=== PATIENT | female | born 1940 | race Caucasian/White ===

== ENCOUNTER 2017-07-16 04:46 | Emergency (ER) | payer OTHER, BC ==
[~2017-07-16] VITALS: Ht 157.5 cm; Wt 59.3 kg
[2017-07-16] MEDS ORDERED: ZOFRAN ODT4 MG PO (08:05)
[2017-07-16] MEDS ORDERED: NAPROXEN500 MG PO (08:05)
[2017-07-16] MEDS ORDERED: FLEXERIL10 MG PO (08:05)
[2017-07-16] MEDS ORDERED: LIDODERM 5% P1 PATCH TD ×3 (08:05→08:12)
[2017-07-16 08:52] VITALS: BP 187/95
== END 2017-07-16 08:54 | disposition home or self-care (01) ==
LOC: EME 04:46
DX: M48.56XA Collapsed vertebra, not elsewhere classified, lumbar region, initial encounter for fracture (principal); Z85.118 Personal history of other malignant neoplasm of bronchus and lung; Z88.0 Allergy status to penicillin
CPT/HCPCS: 72100; 99281; 99284; J1885

== ENCOUNTER 2017-09-02 10:00 | Inpatient (IN) | payer OTHER, BC ==
[~2017-09-02] VITALS: Ht 157.5 cm; Wt 58.5 kg
[2017-09-02] VITALS (10 sets, daily range): BP systolic 92–191; BP diastolic 57–82
[~2017-09-02 10:00] MED LIST: FLEXERIL10 MG PO; LIDODERM 5% P1 PATCH TD; NAPROXEN500 MG PO; ZOFRAN ODT4 MG PO
[2017-09-02 11:13] LABS: HEMATOCRIT 21.1 % (36.0-46.0); MCH 25.1 PG (29.0-34.0); MCHC 30.8 G/DL (30.0-36.0); MCV 81.5 FL (83-99); MEAN PLAT.VOLUME 9.5 uM^3 (9.5-12.4); PLATELET COUNT 541 K/uL (156-360); RBC DIS.WIDTH-CV 16.9 % (11.8-14.6); RBC DIS.WIDTH-SD 49.8 % (39-53); RED BLOOD COUNT 2.59 M/uL (3.80-5.20); WHITE BLOOD COUNT 10.6 K/uL (4.1-10.2)
[2017-09-02 11:19] LABS: CHLORIDE 97 mEq/L (99-109); INTER. NORMALIZED RATIO 1.1; POTASSIUM 4.6 mEq/L (3.7-5.4); PROTHROMBIN TIME 12.4 SEC (10.2-12.9); SODIUM 133 mEq/L (136-147)
[2017-09-02 11:20] LABS: GLUCOSE 254 mg/dL (70-99)
[2017-09-02 11:21] LABS: PTT 28.9 SEC (25-37)
[2017-09-02 11:22] LABS: ANION GAP 7 MEQ/L (2-14)
[2017-09-02 11:24] LABS: GFR ESTIMATE (CALCULATED) > 59 mL/min/
[2017-09-02 11:25] LABS: UREA NITROGEN (BUN) 22 mg/dL (9-23)
[2017-09-02 11:32] LABS: TROP-I INTERPRETATION NEGATIVE; TROPONIN-I 0.01 ng/mL (0.0-0.30)
[2017-09-02 12:32] LABS: ABSOLUTE RETICULOCYTE CT. 0.1 M/uL (0.02-0.08); IMM.RETIC FRACTION 39.2 % (3-19); RETIC HGB EQUIVALENT 25.4 (28-36); RETICULOCYTE COUNT 2.6 % (0.5-1.8)
[2017-09-02] MEDS ORDERED: DUONEB 2.5-0.5 M3 ML AEROSOL (15:39)
[2017-09-02] MEDS ORDERED: METFORMIN HCL500 MG PO (15:39)
[2017-09-02] MEDS ORDERED: LISINOPRIL5 MG PO (15:39)
[2017-09-02] MEDS ORDERED: PANTOPRAZOLE SO40 MG PO (15:39)
[2017-09-02 19:24] LABS: TROP-I INTERPRETATION NEGATIVE; TROPONIN-I 0.01 ng/mL (0.0-0.30)
[2017-09-03 00:46] VITALS: BP 162/80
[2017-09-03 02:59] VITALS: BP 154/74
[2017-09-03 03:01] LABS: EOSINOPHIL (%) 0.1 % (0-5); HEMATOCRIT 26.5 % (36.0-46.0); IMMATURE GRANULOCYTE (%) 0.9 % (0.0-0.7); IMMATURE GRANULOCYTE COUNT 0.1 K/uL; INSTRUMENT ABS NEUTROPHIL CT 7.7 K/uL; LYMPHOCYTE COUNT 2.2 K/uL (1.0-2.8); MCH 26.4 PG (29.0-34.0); MCHC 32.5 G/DL (30.0-36.0); MCV 81.3 FL (83-99); MEAN PLAT.VOLUME 9.4 uM^3 (9.5-12.4); MONOCYTE (%) 10.8 % (3-12); MONOCYTE COUNT 1.2 K/uL (0-0.8); NEUTROPHIL (%) 68.5 % (45-76); NEUTROPHIL COUNT 7.7 K/uL (1.8-6.4); PLATELET COUNT 492 K/uL (156-360); RBC DIS.WIDTH-CV 16.1 % (11.8-14.6); RBC DIS.WIDTH-SD 47.9 % (39-53); WHITE BLOOD COUNT 11.2 K/uL (4.1-10.2)
[2017-09-03 03:02] LABS: RED BLOOD COUNT 3.26 M/uL (3.80-5.20)
[2017-09-03 03:20] LABS: TROP-I INTERPRETATION NEGATIVE; TROPONIN-I < 0.01 ng/mL (0.0-0.30)
[2017-09-03 08:13] VITALS: BP 123/58
[2017-09-03 11:37] VITALS: BP 160/72
[2017-09-03 15:28] VITALS: BP 136/63
[2017-09-03 20:45] VITALS: BP 168/72
[2017-09-04] VITALS: BP 154/74
[2017-09-04 02:49] VITALS: BP 159/84
[2017-09-04 05:27] LABS: HEMATOCRIT 27.2 % (36.0-46.0); MCH 25.7 PG (29.0-34.0); MCHC 31.3 G/DL (30.0-36.0); MCV 82.2 FL (83-99); MEAN PLAT.VOLUME 9.4 uM^3 (9.5-12.4); PLATELET COUNT 500 K/uL (156-360); RBC DIS.WIDTH-CV 16.3 % (11.8-14.6); RBC DIS.WIDTH-SD 48.9 % (39-53); RED BLOOD COUNT 3.31 M/uL (3.80-5.20); WHITE BLOOD COUNT 11.6 K/uL (4.1-10.2)
[2017-09-04 05:54] LABS: ANION GAP 6 MEQ/L (2-14); CHLORIDE 96 MEQ/L (99-109); GFR ESTIMATE (CALCULATED) > 59 mL/min/; GLUCOSE 127 mg/dL (70-99); POTASSIUM 4.2 MEQ/L (3.7-5.4); SAMPLE HEMOLYSIS CHECK 0; SAMPLE ICTERIC CHECK 0; SAMPLE LIPEMIA CHECK 0; SODIUM 130 MEQ/L (136-147); UREA NITROGEN (BUN) 13 mg/dL (9-23)
[2017-09-04 08:30] VITALS: BP 186/84
[2017-09-04 08:42] LABS: EOSINOPHIL (%) 1.9 % (0-5); EOSINOPHIL COUNT 0.2 K/uL (0-0.3); HEMATOCRIT 27.6 % (36.0-46.0); IMMATURE GRANULOCYTE (%) 0.6 % (0.0-0.7); IMMATURE GRANULOCYTE COUNT 0.1 K/uL; INSTRUMENT ABS NEUTROPHIL CT 7.2 K/uL; MCH 26.7 PG (29.0-34.0); MCHC 32.2 G/DL (30.0-36.0); MCV 82.9 FL (83-99); MEAN PLAT.VOLUME 9.2 uM^3 (9.5-12.4); MONOCYTE (%) 12.3 % (3-12); MONOCYTE COUNT 1.3 K/uL (0-0.8); NEUTROPHIL (%) 66.2 % (45-76); NEUTROPHIL COUNT 7.2 K/uL (1.8-6.4); PLATELET COUNT 483 K/uL (156-360); RBC DIS.WIDTH-CV 16.5 % (11.8-14.6); RBC DIS.WIDTH-SD 49.5 % (39-53); RED BLOOD COUNT 3.33 M/uL (3.80-5.20); WHITE BLOOD COUNT 10.8 K/uL (4.1-10.2)
[2017-09-04 11:48] VITALS: BP 172/72
[2017-09-04 16:00] VITALS: BP 150/80
[2017-09-04 19:19] VITALS: BP 134/63
[2017-09-05 00:26] VITALS: BP 164/76
[2017-09-05 04:14] VITALS: BP 180/72
[2017-09-05 07:44] VITALS: BP 179/77
[2017-09-05 11:59] VITALS: BP 149/67
[2017-09-05 16:07] VITALS: BP 172/81
[2017-09-05 19:26] VITALS: BP 159/72
[2017-09-06 01:00] VITALS: BP 143/66
[2017-09-06 05:39] LABS: HEMATOCRIT 27.8 % (36.0-46.0); MCHC 31.3 G/DL (30.0-36.0); MCV 83.2 FL (83-99); MEAN PLAT.VOLUME 9.4 uM^3 (9.5-12.4); PLATELET COUNT 524 K/uL (156-360); RBC DIS.WIDTH-CV 16.5 % (11.8-14.6); RBC DIS.WIDTH-SD 49.7 % (39-53); RED BLOOD COUNT 3.34 M/uL (3.80-5.20); WHITE BLOOD COUNT 10.7 K/uL (4.1-10.2)
[2017-09-06 06:04] LABS: ANION GAP 5 MEQ/L (2-14); CHLORIDE 96 MEQ/L (99-109); GFR ESTIMATE (CALCULATED) > 59 mL/min/; GLUCOSE 149 mg/dL (70-99); SAMPLE HEMOLYSIS CHECK 0; SAMPLE ICTERIC CHECK 0; SAMPLE LIPEMIA CHECK 0; SODIUM 130 MEQ/L (136-147); UREA NITROGEN (BUN) 17 mg/dL (9-23)
[2017-09-06 08:45] VITALS: BP 149/67
[2017-09-06 12:30] VITALS: BP 158/77
[2017-09-06 16:40] VITALS: BP 123/82
[2017-09-06 19:00] VITALS: BP 176/84
[2017-09-07 03:56] VITALS: BP 143/68
[2017-09-07 07:23] VITALS: BP 145/70
[2017-09-07 11:50] VITALS: BP 139/64
[2017-09-07 15:13] VITALS: BP 134/61
[2017-09-07 20:34] VITALS: BP 160/90
[2017-09-08 00:21] VITALS: BP 151/68
[2017-09-08 06:44] LABS: Estimated Average Glucose 151 mg/dL (70-123); HEMOGLOBIN A1c (GLYCOHEMOGLOB) 6.9 % HGB (Below 5.7)
[2017-09-08 08:08] VITALS: BP 145/74
[2017-09-08 15:20] VITALS: BP 136/63
[2017-09-08 17:39] LABS: POINT-OF-CARE METER ID UU13113725
[2017-09-08 23:48] VITALS: BP 148/67
[2017-09-09 03:33] LABS: HEMATOCRIT 25.6 % (36.0-46.0); MCH 25.7 PG (29.0-34.0); MCHC 31.6 G/DL (30.0-36.0); MCV 81.3 FL (83-99); PLATELET COUNT 503 K/uL (156-360); RBC DIS.WIDTH-CV 16.5 % (11.8-14.6); RBC DIS.WIDTH-SD 49.1 % (39-53); RED BLOOD COUNT 3.15 M/uL (3.80-5.20); WHITE BLOOD COUNT 10.5 K/uL (4.1-10.2)
[2017-09-09 04:02] VITALS: BP 110/58
[2017-09-09 07:27] LABS: POINT-OF-CARE METER ID UU13113774
[2017-09-09 07:52] VITALS: BP 157/76
[2017-09-09 11:00] VITALS: BP 172/79
[2017-09-09 16:44] LABS: POINT-OF-CARE METER ID UU13113725
[2017-09-09 17:38] VITALS: BP 133/66
[2017-09-09 17:39] VITALS: BP 142/72
[2017-09-09 23:06] VITALS: BP 130/67
[2017-09-10 05:46] LABS: POINT-OF-CARE METER ID UU13113725
[2017-09-10 06:40] VITALS: BP 134/62
[2017-09-10 12:06] LABS: POINT-OF-CARE METER ID UU13113774
[2017-09-10 15:25] VITALS: BP 142/66
[2017-09-10 16:12] LABS: POINT-OF-CARE METER ID UU13113725
[2017-09-10 22:35] VITALS: BP 134/61
[2017-09-11 06:13] LABS: POINT-OF-CARE METER ID UU13113774
[2017-09-11 06:26] VITALS: BP 141/61
[2017-09-11 14:56] VITALS: BP 187/77
[2017-09-11 15:38] LABS: POINT-OF-CARE METER ID UU13113725
[2017-09-11 22:41] VITALS: BP 139/63
[2017-09-12 06:36] LABS: POINT-OF-CARE METER ID UU13113774
[2017-09-12 07:00] VITALS: BP 136/65
[2017-09-12 12:00] LABS: POINT-OF-CARE METER ID UU13113725
[2017-09-12 15:00] VITALS: BP 155/68
[2017-09-12 16:29] LABS: POINT-OF-CARE METER ID UU13113725
[2017-09-12 23:34] VITALS: BP 143/60
[2017-09-13 07:00] VITALS: BP 138/62
[2017-09-13 07:27] LABS: POINT-OF-CARE METER ID UU13113774
[2017-09-13 12:04] LABS: POINT-OF-CARE METER ID UU13113725
[2017-09-13 15:10] VITALS: BP 177/78
[2017-09-13 16:31] LABS: POINT-OF-CARE METER ID UU13113774
[2017-09-13 23:42] VITALS: BP 114/67; BP 14/67
[2017-09-14 05:53] LABS: POINT-OF-CARE METER ID UU13113774
[2017-09-14 07:45] VITALS: BP 132/62
[2017-09-14 12:06] LABS: POINT-OF-CARE METER ID UU13113774
[2017-09-14 15:29] VITALS: BP 184/83
[2017-09-14 16:00] LABS: POINT-OF-CARE METER ID UU13113774
[2017-09-14 21:06] LABS: POINT-OF-CARE METER ID UU13113725
[2017-09-14 22:58] VITALS: BP 136/61
[2017-09-15 05:54] LABS: POINT-OF-CARE METER ID UU13113725
[2017-09-15 07:23] VITALS: BP 141/67
[2017-09-15] MEDS ORDERED: SODIUM CHLORIDE1 G1 PO (10:44)
[2017-09-15] MEDS ORDERED: GUAIFENESI100 MG/5 M PO (10:44)
[2017-09-15] MEDS ORDERED: SENNA LAX8.6 MG PO (10:46)
[2017-09-15] MEDS ORDERED: POLYETHYLENE GL17 GM PO (10:47)
[2017-09-15] MEDS ORDERED: Ocean Nasal 0.65% BOTH NARES (10:47)
[2017-09-15] MEDS ORDERED: NOVOLOG PE100 UNITS/ SC (10:47)
[2017-09-15 10:49] LABS: POINT-OF-CARE METER ID UU13113774
[2017-09-15 13:15] VITALS: BP 00/00
== END 2017-09-15 15:11 | DRG 543 ==
LOC: EME 10:00 → 4EAST 14:20 → EDOF 14:20 → ENRESERV 14:47 → 4EAST 17:19 → ENRESERV 09-07 13:20 → 5EAST 09-07 19:26 → ENPENDDIS 09-15 15:00 → 5EAST 09-15 15:11
PROVIDERS: Emergency Medicine; Family Medicine; Internal Medicine
PROC: 30233N1 Transfusion of Nonautologous Red Blood Cells into Peripheral Vein, Percutaneous Approach (ICD-10-PCS; principal; 2017-09-02)
DX: C79.51 Secondary malignant neoplasm of bone (principal); C34.11 Malignant neoplasm of upper lobe, right bronchus or lung; R04.2 Hemoptysis; K92.2 Gastrointestinal hemorrhage, unspecified; J90 Pleural effusion, not elsewhere classified; E11.9 Type 2 diabetes mellitus without complications; I10 Essential (primary) hypertension; R63.4 Abnormal weight loss; F32.0 Major depressive disorder, single episode, mild; M81.0 Age-related osteoporosis without current pathological fracture; D63.8 Anemia in other chronic diseases classified elsewhere; E87.1 Hypo-osmolality and hyponatremia; E27.9 Disorder of adrenal gland, unspecified; I95.9 Hypotension, unspecified; G89.4 Chronic pain syndrome; K59.09 Other constipation; Z96.641 Presence of right artificial hip joint; K21.9 Gastro-esophageal reflux disease without esophagitis; R09.02 Hypoxemia; Z51.5 Encounter for palliative care; Z85.118 Personal history of other malignant neoplasm of bronchus and lung; Z90.49 Acquired absence of other specified parts of digestive tract; Z87.891 Personal history of nicotine dependence; Z82.3 Family history of stroke
CPT/HCPCS: 71020; 71275; 77290; 77295; 77300; 77331; 77334; 77336; 77412; 80048; 82607; 82728; 82746; 82948; 83036; 84466; 84484; 85025; 85027; 85045; 85379; 85610; 85730; 86850; 86900; 86901; 86920; 93005; 94640; 94640 76; 94760; 94799; 97530 GO; 97530 GP; 99202; 99281; 99285; J0692; J1815; J1940; J2270; J2405; J7030; J7040; J7050; J7512; P9016; P9040